=== PATIENT | male | born 1990 | race Hispanic/Latino ===

== ENCOUNTER 2023-03-12 09:22 | Emergency (ER) | payer OTHER ==
[~2023-03-12] VITALS: Ht 180.3 cm; Wt 113.4 kg
[2023-03-12 09:56] LABS: RAPID GROUP A STREP negative (NEGATIVE)
[2023-03-12 10:01] LABS: SARS-CoV-2, RNA, NAAT NEGATIVE SARS CoV-2 (NEGATIVE)
[2023-03-12 10:07] LABS: INFLUENZA TYPE A Negative For Type A (NEGATIVE); INFLUENZA TYPE B Negative For Type B (NEGATIVE)
[2023-03-12] MEDS ORDERED: GUAFACSF5L PO (11:02)
[2023-03-12] MEDS ORDERED: ALBU90AE2 IH (11:02)
[2023-03-12 11:27] VITALS: BP 136/80; PULSE 72; RESP 16; O2SAT 99
== END 2023-03-12 11:28 | disposition home or self-care (01) ==
LOC: EDH 09:22
DX: J40 Bronchitis, not specified as acute or chronic (principal); E11.9 Type 2 diabetes mellitus without complications; Z20.822 Contact with and (suspected) exposure to COVID-19; Z79.899 Other long term (current) drug therapy; Z98.890 Other specified postprocedural states
CPT/HCPCS: 99284; 71046; 87635; 87880; 87804 ×2; C9803